=== PATIENT | male | born 1980 | race Caucasian/White ===

== ENCOUNTER 2021-02-28 16:17 | Inpatient (IN) ==
[2021-02-28] MEDS: (Icosapent Ethyl [Vascepa] 1 GM Capsule) PO SCH (22:04)
[2021-02-28] MEDS: Gabapentin 300 MG CAPSULE PO SCH (22:04)
[2021-02-28] MEDS: traZODone 50 MG TABLET PO SCH (22:05)
[2021-03-01 05:37] LABS: Basophils # 0.1 K/mcL (0.0-0.2); Basophils % 0.6 %; Eosinophils % 0.1 %; Hemoglobin 17.9 g/dL (12.9-16.9); Immature Granulocytes % 2.4 % (0-4); Lymphocytes % 17.9 %; Mean Corpuscular HGB Conc 33.8 g/dL (31.6-35.5); Mean Corpuscular Hemoglobin 29.2 pg (28.0-33.3); Mean Corpuscular Volume 86.6 fL (83.0-100.0); Mean Platelet Volume 9.6 fL (9.4-12.4); Monocytes # 0.8 K/mcL (0.0-1.3); Monocytes % 7.5 %; Neutrophils # 7.9 K/mcL (1.6-8.9); Platelet Count 299 K/mcL (140-400); Red Blood Count 6.12 M/mcL (4.19-5.50); Red Cell Distribution Width 13.8 % (11.5-14.5); Segmented Neutrophils % 71.5 %; White Blood Count 11.1 K/mcL (4.3-11.1)
[2021-03-01] MEDS: *HR* Enoxaparin 40 MG/0.4 ML SYRINGE SQ SCH (05:41)
[2021-03-01 05:50] LABS: BUN/Creatinine Ratio 26 (6-26); Blood Urea Nitrogen 28 mg/dL (6-20); Calcium 9.3 mg/dL (8.6-10.3); Carbon Dioxide 24 mEq/L (23-29); Chloride 102 mEq/L (98-107); Glucose 89 mg/dL (70-105); Osmolality,Calculated 291 (280-300); Potassium 3.7 mEq/L (3.5-5.1); Sodium 138 mEq/L (136-145); eGFR For African Americans > 60 (> 60); eGFR For Non-African Americans > 60 (> 60)
[2021-03-01] MEDS: FISH OIL PO SCH (09:34)
[2021-03-01] MEDS: Gabapentin 300 MG CAPSULE PO SCH ×3 (09:34→20:49)
[2021-03-01] MEDS: (Icosapent Ethyl [Vascepa] 1 GM Capsule) PO SCH ×2 (09:34→20:40)
[2021-03-01] MEDS ORDERED: Ipratropium 1 PUFF INHALER IH PRN (14:12)
[2021-03-01] MEDS: dexAMETHasone 4 MG TABLET PO SCH (15:21)
[2021-03-01] MEDS: traZODone 50 MG TABLET PO SCH (20:49)
[2021-03-02] MEDS: *HR* Enoxaparin 40 MG/0.4 ML SYRINGE SQ SCH (05:46)
[2021-03-02] MEDS: dexAMETHasone 4 MG TABLET PO SCH (10:39)
[2021-03-02] MEDS: Gabapentin 300 MG CAPSULE PO SCH ×3 (10:40→20:21)
[2021-03-02] MEDS: (Icosapent Ethyl [Vascepa] 1 GM Capsule) PO SCH ×2 (10:42→20:25)
[2021-03-02] MEDS: FISH OIL PO SCH (10:42)
[2021-03-02] MEDS: traZODone 50 MG TABLET PO SCH (20:21)
[2021-03-03 05:23] LABS: Basophils # 0.1 K/mcL (0.0-0.2); Basophils % 0.8 %; Eosinophils # 0.1 K/mcL (0.0-0.6); Eosinophils % 0.4 %; Hematocrit 54.8 % (37.5-50.1); Hemoglobin 18.5 g/dL (12.9-16.9); Lymphocytes % 15.4 %; Mean Corpuscular HGB Conc 33.8 g/dL (31.6-35.5); Mean Corpuscular Volume 85.8 fL (83.0-100.0); Mean Platelet Volume 9.7 fL (9.4-12.4); Monocytes % 6.4 %; Neutrophils # 9.6 K/mcL (1.6-8.9); Platelet Count 292 K/mcL (140-400); Red Blood Count 6.39 M/mcL (4.19-5.50); Red Cell Distribution Width 13.5 % (11.5-14.5); White Blood Count 13.2 K/mcL (4.3-11.1)
[2021-03-03 05:26] LABS: Monocytes # 0.8 K/mcL (0.0-1.3)
[2021-03-03 05:59] LABS: Alanine Aminotransferase 35 Units/L (7-52); Albumin 4.7 g/dL (3.5-5.7); Albumin/Globulin Ratio 1.7 (1.1-2.2); Alkaline Phosphatase 77 Units/L (34-104); Aspartate Amino Transferase 21 Units/L (13-39); BUN/Creatinine Ratio 22 (6-26); Bilirubin,Total 0.6 mg/dL (0.3-1.0); Blood Urea Nitrogen 24 mg/dL (6-20); Calcium 9.1 mg/dL (8.6-10.3); Carbon Dioxide 24 mEq/L (23-29); Chloride 101 mEq/L (98-107); Globulin 2.7 g/dL (2.4-3.5); Glucose 87 mg/dL (70-105); Magnesium 2.5 mg/dL (1.6-2.6); Osmolality,Calculated 289 (280-300); Potassium 3.7 mEq/L (3.5-5.1); Sodium 138 mEq/L (136-145); Total Protein 7.4 g/dL (6.4-8.9); eGFR For African Americans > 60 (> 60); eGFR For Non-African Americans > 60 (> 60)
[2021-03-03] MEDS: *HR* Enoxaparin 40 MG/0.4 ML SYRINGE SQ SCH (06:01)
[2021-03-03] MEDS: Gabapentin 300 MG CAPSULE PO SCH ×3 (08:44→20:52)
[2021-03-03] MEDS: dexAMETHasone 4 MG TABLET PO SCH (08:44)
[2021-03-03] MEDS: (Icosapent Ethyl [Vascepa] 1 GM Capsule) PO SCH ×2 (08:45→20:52)
[2021-03-03] MEDS: FISH OIL PO SCH (08:45)
[2021-03-03] MEDS: traZODone 50 MG TABLET PO SCH (20:52)
[2021-03-04] MEDS: *HR* Enoxaparin 40 MG/0.4 ML SYRINGE SQ SCH (06:13)
[2021-03-04] MEDS: dexAMETHasone 4 MG TABLET PO SCH (08:31)
[2021-03-04] MEDS: Gabapentin 300 MG CAPSULE PO SCH ×3 (08:31→20:20)
[2021-03-04] MEDS: FISH OIL PO SCH (08:32)
[2021-03-04] MEDS: (Icosapent Ethyl [Vascepa] 1 GM Capsule) PO SCH (08:33)
[2021-03-04] MEDS: traZODone 50 MG TABLET PO SCH (20:20)
[2021-03-05 05:35] LABS: Basophils # 0.1 K/mcL (0.0-0.2); Basophils % 0.9 %; Eosinophils # 0.2 K/mcL (0.0-0.6); Eosinophils % 1.6 %; Hematocrit 52.3 % (37.5-50.1); Hemoglobin 17.9 g/dL (12.9-16.9); Immature Granulocytes % 4.1 % (0-4); Lymphocytes # 2.7 K/mcL (0.6-4.6); Lymphocytes % 23.7 %; Mean Corpuscular HGB Conc 34.2 g/dL (31.6-35.5); Mean Corpuscular Hemoglobin 29.2 pg (28.0-33.3); Mean Corpuscular Volume 85.3 fL (83.0-100.0); Mean Platelet Volume 9.8 fL (9.4-12.4); Monocytes % 8.4 %; Platelet Count 245 K/mcL (140-400); Red Blood Count 6.13 M/mcL (4.19-5.50); Red Cell Distribution Width 13.3 % (11.5-14.5); Segmented Neutrophils % 61.3 %; White Blood Count 11.4 K/mcL (4.3-11.1)
[2021-03-05 05:50] LABS: Alanine Aminotransferase 40 Units/L (7-52); Albumin 4.3 g/dL (3.5-5.7); Albumin/Globulin Ratio 1.8 (1.1-2.2); Alkaline Phosphatase 71 Units/L (34-104); Aspartate Amino Transferase 23 Units/L (13-39); BUN/Creatinine Ratio 20 (6-26); Bilirubin,Total 0.7 mg/dL (0.3-1.0); Blood Urea Nitrogen 21 mg/dL (6-20); Calcium 8.6 mg/dL (8.6-10.3); Carbon Dioxide 26 mEq/L (23-29); Chloride 102 mEq/L (98-107); Globulin 2.4 g/dL (2.4-3.5); Glucose 89 mg/dL (70-105); Magnesium 2.4 mg/dL (1.6-2.6); Osmolality,Calculated 288 (280-300); Potassium 3.4 mEq/L (3.5-5.1); Sodium 138 mEq/L (136-145); Total Protein 6.7 g/dL (6.4-8.9); eGFR For African Americans > 60 (> 60); eGFR For Non-African Americans > 60 (> 60)
[2021-03-05] MEDS: *HR* Enoxaparin 40 MG/0.4 ML SYRINGE SQ SCH (05:56)
[2021-03-05] MEDS: Gabapentin 300 MG CAPSULE PO SCH ×3 (07:52→19:32)
[2021-03-05] MEDS: dexAMETHasone 4 MG TABLET PO SCH (07:52)
[2021-03-05] MEDS: traZODone 50 MG TABLET PO SCH (19:32)
[2021-03-06] MEDS: *HR* Enoxaparin 40 MG/0.4 ML SYRINGE SQ SCH (10:35)
[2021-03-06] MEDS: Gabapentin 300 MG CAPSULE PO SCH ×3 (10:36→21:30)
[2021-03-06] MEDS: traZODone 50 MG TABLET PO SCH (21:30)
[2021-03-07] MEDS: *HR* Enoxaparin 40 MG/0.4 ML SYRINGE SQ SCH (06:31)
[2021-03-07] MEDS: Gabapentin 300 MG CAPSULE PO SCH ×3 (08:48→20:26)
[2021-03-07] MEDS: traZODone 50 MG TABLET PO SCH (20:26)
[2021-03-08] MEDS: *HR* Enoxaparin 40 MG/0.4 ML SYRINGE SQ SCH (05:38)
[2021-03-08] MEDS: Gabapentin 300 MG CAPSULE PO SCH ×3 (07:57→19:54)
[2021-03-08] MEDS: traZODone 50 MG TABLET PO SCH (19:54)
[2021-03-09] MEDS: *HR* Enoxaparin 40 MG/0.4 ML SYRINGE SQ SCH (05:15)
[2021-03-09] MEDS: Gabapentin 300 MG CAPSULE PO SCH ×3 (08:47→21:14)
[2021-03-09] MEDS: traZODone 50 MG TABLET PO SCH (21:14)
[2021-03-10] MEDS: *HR* Enoxaparin 40 MG/0.4 ML SYRINGE SQ SCH (05:37)
[2021-03-10] MEDS: Gabapentin 300 MG CAPSULE PO SCH ×3 (10:03→20:35)
[2021-03-10] MEDS: traZODone 50 MG TABLET PO SCH (20:35)
[2021-03-11] MEDS: *HR* Enoxaparin 40 MG/0.4 ML SYRINGE SQ SCH (06:14)
[2021-03-11] MEDS: Gabapentin 300 MG CAPSULE PO SCH ×2 (07:36→14:38)
[2021-03-11 08:00] VITALS: BP 111/76; PULSE 70; RESP 18; TEMP 97.3; O2SAT 92
== END 2021-03-11 18:51 | DRG 177 ==
LOC: INPGRE 20:38
PROVIDERS: ADMIT Family Medicine; ATTEND Family Medicine